=== PATIENT | male | born 1975 | race Caucasian/White ===

== ENCOUNTER 2023-08-04 08:36 | Day surgery (SDC) | payer MEDICAID, SELFPAY ==
[2023-08-04 09:25] VITALS: BP 144/91; PULSE 62; RESP 16; TEMP 36.5; O2SAT 95
[2023-08-04] MEDS: Lactated Ringers 1,000 ML 80 ML IV (09:40)
--- NOTE | 2023-08-04 09:47 | COLE_ITS ---
Date of service: 08/04/23 Time of Service: 09:48 Colonoscopy Report Procedure Description: PROCEDURES PERFORMED: 1. Colonoscopy with cold forceps polypectomy PREOPERATIVE DIAGNOSIS: Screening colonoscopy POSTOPERATIVE DIAGNOSIS: Rectal polyp, sigmoid diverticulosis SURGEON: Wilfred Manrique MD INDICATION FOR PROCEDURE: the patient is a 48-year-old man who does not have a family history of colon cancer. Does not have any symptoms. He is due for his first screening colonoscopy. FINDINGS: An isolated 2-3 mm polyp was removed from the rectum. No other colon polyps were noted. Mild diverticular changes in the sigmoid colon only. No active inflammation. No significant hemorrhoid disease. SURVEILLANCE interval/FOLLOW-UP: 7-10 years as long as there is no advanced histology on the rectal polyp SPECIMENS: Yes EBL: Minimal COMPLICATIONS: None QUALITY of prep: Good. Procedure in detail: The patient gave written consent and was in agreement with the indications, the potential risks as well as the benefits of the procedure. They were taken to the endoscopy suite and laid in the left lateral decubitus position. A timeout was performed and anesthesia was administered which was tolerated well. I started the procedure. Digital rectal and visual examination was performed and grossly within normal limits. A well-lubricated flexible colonoscope was then introduced and passed without any notable difficulty all the way to the cecum identified by the il eocecal valve and the appendiceal orifice. The scope was then slowly withdrawn with the above-noted findings. The patient tolerated the procedure well and was taken to the PACU in hemodynamically stable condition.
--- NOTE | 2023-08-04 09:48 | W.PM.DSUDISC ---
Date of service: 08/04/23 Time of Service: 09:48 Discharge Plan Disposition Patient Disposition: Home Condition: Good Discharge Details Attending Provider: Duy Manrique Primary Care Provider: Alia Ojeda Home Meds and New Rx's Prescriptions: No Action bisacodyl [Dulcolax (bisacodyl)] 5 mg tablet,delayed release (DR/EC) 5 mg PO ONCE Qty: 4 0RF Rx Instructions: Take per colonoscopy instructions provided by ordering providers office polyethylene glycol 3350 17 gram/dose powder 17 g PO ONCE Qty: 238 0RF Rx Instructions: Take per colonoscopy instructions provided by ordering providers office divalproex [Depakote ER] 500 mg tablet extended release 24 hr 1,500 mg PO DAILY aripiprazole 15 mg tablet 15 mg PO QHS benztropine 1 mg tablet 1 mg PO BID pioglitazone 15 mg tablet 15 mg PO DAILY quetiapine 100 mg tablet 100 mg PO QHS tramadol 50 mg tablet 50 mg PO TID PRN albuterol sulfate 90 mcg/actuation HFA aerosol inhaler 2 puff inhalation Q6H PRN Patient Comments: doesnt have gemfibrozil 600 mg tablet 600 mg PO BID Trexall 15 mg tablet 15 mg PO QWEEK Patient Comments: pt. thinks last time was a friday,unsure of date metformin 500 mg tablet 500 mg PO BID sumatriptan succinate 100 mg tablet 100 mg PO ONCE PRN Rx Instructions: take 1/2-tab po BID prn Discharge Instructions Additional Instructions: FINDINGS: A small polyp was found and removed today. This is nothing to worry about. This is why we do the colonoscopies. Some very mild diverticular disease was found today. This is extremely common, benign, and nothing can or needs to be done about it. You should repeat another colonoscopy in 7 to 10 years. Stand Alone Forms: Anesthesia Discharge Inst., Colonoscopy Post Instructions, Selene Villalobos ([facility]) Activity:: Activity as Tolerated Diet:: As Tolerated
--- NOTE | 2023-08-04 10:01 | ANES.PREOP_ITS ---
General Info Date of Service Date Performed: 08/04/23 Height: 6 ft Weight: 129.727 kg Body Mass Index (BMI): 38.7 Surgical Procedure: Operation Date: 08/04/23 10:20 Proposed Procedure Side Surgeon kamran Manrique MD Meds Allergies and Home Medications Allergies Allergy/AdvReac Type Severity Reaction Status Date / Time No Known Drug Allergies Allergy Unknown Other (See Verified 08/04/23 09:20 Comment) Home Medication Medication Instructions Recorded albuterol sulfate 90 mcg/actuation 2 puff inhalation Q6H PRN 01/14/23 aerosol inhaler gemfibrozil 600 mg tablet 600 mg PO BID 01/14/23 methotrexate sodium 15 mg tablet 15 mg PO QWEEK 01/14/23 (Trexall) metformin 500 mg tablet 500 mg PO BID 05/07/23 aripiprazole 15 mg tablet 15 mg PO QHS 07/24/23 benztropine 1 mg tablet 1 mg PO BID 07/24/23 bisacodyl 5 mg tablet,delayed 5 mg PO ONCE #4 tabs 07/24/23 release (Dulcolax (bisacodyl)) divalproex 500 mg tablet,extended 1,500 mg PO DAILY 07/24/23 release 24 hr (Depakote ER) pioglitazone 15 mg tablet 15 mg PO DAILY 07/24/23 polyethylene glycol 3350 17 17 g PO ONCE #238 grams 07/24/23 gram/dose oral powder quetiapine 100 mg tablet 100 mg PO QHS 07/24/23 sumatriptan succinate 100 mg tablet 100 mg PO ONCE PRN 07/24/23 tramadol 50 mg tablet 50 mg PO TID PRN 07/24/23 Current Visit Medications: Current Medications Generic Name Dose Route Start Last Admin Trade Name Freq PRN Reason Stop Dose Admin Ringer's Solution 1,000 mls @ 80 mls/hr 08/04/23 06:00 08/04/23 09:40 IV 08/31/23 23:59 80 mls/hr INFUSION RAUL Administration IV Miscellaneous Supplies 1 each 08/04/23 06:00 Iv Access IV 08/31/23 23:59 DIRECTED RAUL Sodium Chloride 0 ml 08/04/23 06:00 Normal Saline Flush 10 Ml Syr IV 08/31/23 23:59 PRN PRN Sodium Chloride 0 ml 08/04/23 06:00 Normal Saline 10 Ml Vial IJ 08/31/23 23:59 DIRECTED PRN Sterile Water 0 ml 08/04/23 06:00 Water,Injection,Sterile 10 Ml Vial IJ 08/31/23 23:59 DIRECTED PRN PFSH Active Problems Active Problems: Problem Status Onset Code MIKI (obstructive sleep apnea) G47.33 Psoriasis L40.9 Bipolar disorder, unspecified F31.9 Medical History Medical History Arthritis Type 2 diabetes mellitus Pure hyperglyceridemia Chronic migraine without aura Calculus of kidney Surgical History Surgical History History of surgery on wrist Tobacco Smoking/Tobacco Use Status: Current every day Tobacco Type: cigarettes Smoking cigarettes per day: 10 Alcohol Alcohol Intake: former Substance Use Substance use: Current Sobriety Substance use type: does not use Vital Signs and Lab Results Vital Signs Most Recent Vital Signs in EMR: Most Recent Vital Signs Temp Pulse Resp BP Pulse Ox 36.5 C 62 16 144/91 H 95 08/04/23 09:25 08/04/23 09:25 08/04/23 09:25 08/04/23 09:25 08/04/23 09:25 Point of Care Results Point of Care Results: Finger Stick Blood Glucose 104 08/04/23 09:19 Lab Results Blood Type / Crossmatch: 2 No Data to Display Complete Blood Count: 2 No Data to Display Complete Metabolic Panel: 2 No Data to Display Liver Function Panel: 2 No Data to Display Coagulation Panel: 2 No Data to Display Cardiac Panel: 2 No Data to Display Arterial Blood Gas: 2 No Data to Display Venous Blood Gas: 2 No Data to Display Pancreas Panel: 2 No Data to Display Thyroid Panel: 2 No Data to Display Infectious Disease: 2 No Data to Display Blood Cultures: 2 No Data to Display Toxicology Panel: 2 No Data to Display Anesthesia Assessment and Plan Anesthesia History Personal History: No History of Anesthesia Complications Family History: No Family History of Anesthesia Complications Exercise Tolerance Exercise Tolerance: Metabolic Equivalents>4 Pertinent Negatives Pertinent Negatives: No Symptoms of GERD, No Major Cardiovascular Symptoms or Complaints and No History of CVA/TIA Cardiac & Pulmonary Exam Cardiac Exam: Normal S1/S2 Heart Sounds Pulmonary Exam: Clear Bilateral Breath Sounds Implantable Cardiac Device Does patient have a Pacemaker or an ICD?: No Airway Exam Known Difficult Airway: No Mallampati Class: 2 Mouth Opening: Normal (> 3cm) Thyromental Distance: Greater than 3 cm Neck Range of Motion: Full ROM Neck Circumference: Normal Teeth Condition: Normal Dentition Tooth Numberin 1. Missing (removed as was rotten) 2. Missing (removed as was rotten) ASA Classification ASA Score: ASA 3 Emergency Case?: No NPO Status NPO Status: NPO Clears >2 hours, Solids >8 hours Anesthesia Plan Resuscitation Status: Full Code Anesthesia Technique: General Anesthesia Airway Planned: Natural Airway Monitors Used: Standard Monitors
[2023-08-04 10:02] VITALS: BMI 38.7
--- NOTE | 2023-08-04 10:25 | BOWEL_PTH ---
PATIENT: Lee Abdi LOC: [facility] U#:[id number] AGE/SX: 48/M ROOM: RE08/04/[address]: Duy Manrique : 1975 BED: DIS: 08/04/2023 SPEC #: [id number] RECD: 08/04/23 12:52 STATUS: MARIA G RESultana #: [id number] ROSSANA: 08/04/23 10:[address]: Duy Manrique DEPT: Surgical Specimen RECD BY: Zaida Richards ENTERED: 08/04/23 12:52 SP TYPE: Bowel OTHR DR: Alia Ojeda Tissues: 1 - BIOPSY BOWEL Procedures: GROSS AND MICRO LEVEL 4 Comments: [id number]
[2023-08-04 10:31] VITALS: BP 119/32; PULSE 65; RESP 16; TEMP 36.7; O2SAT 96
--- NOTE | 2023-08-04 10:44 | W.ANESPOSTOP ---
Postoperative Evaluation Date, Time and Location Date Performed: 08/04/23 Time Performed: 10:33 Patient Location: Day Surgery Unit Vital Signs Most Recent Imported Vital Signs: Most Recent Vital Signs Temp Pulse Resp BP Pulse Ox 36.7 C 65 16 119/32 L 96 08/04/23 10:31 08/04/23 10:31 08/04/23 10:31 08/04/23 10:31 08/04/23 10:31 Pain Score Most Recent Pain Score: Most Recent Pain Score Pain Level 0 08/04/23 10:31 Assessment Mental Status: Awake (Alert & Oriented to Patient Baseline) Airway and Respiratory Function: Patent airway with normal (patient baseline) respiratory exam Cardiovascular Function: Hemodynamically Stable Hydration Status: Adequately Hydrated Nausea & Vomiting: No Nausea or Vomiting Pain: Pt. Denies Any Pain Peripheral Nerve Block: Patient did not receive a nerve block
[2023-08-04 11:03] VITALS: BP 142/71; PULSE 60; RESP 16; TEMP 36.5; O2SAT 95
== END 2023-08-04 11:24 | disposition home or self-care (01) ==
LOC: SUR 08:37
PROVIDERS: PCP Internal Medicine; Visit Provider Student in an Organized Health Care Education/Training Program
PROC: 0DJD8ZZ Inspection of Lower Intestinal Tract, Via Natural or Artificial Opening Endoscopic (ICD-10-PCS; CPT 45378; principal; 2023-08-04 10:15)
DX: Z12.11 Encounter for screening for malignant neoplasm of colon (principal); G47.33 Obstructive sleep apnea (adult) (pediatric); E11.9 Type 2 diabetes mellitus without complications; K57.30 Diverticulosis of large intestine without perforation or abscess without bleeding; D12.8 Benign neoplasm of rectum
CPT/HCPCS: 45380; 00123; 88305; J2704